=== PATIENT | male | born 1980 | race Caucasian/White ===

== ENCOUNTER 2021-10-21 08:42 | Day surgery (SDC) | payer MEDICARE ==
[2021-10-20 10:39] VITALS: BMI 21.6
[~2021-10-21 08:42] MED LIST: EPINEPHrine 0.3 MG, Dextrose 50% 3 ML in Ophthalmic Irrigation Solution 500 ML IRR SCH
[2021-10-21] MEDS ORDERED: Ondansetron PF 4 MG/2 ML Vial ONE (08:55)
[2021-10-21] MEDS ORDERED: Phenylephrine 2.5% Ophth Soln 5 ML BOT ONE (09:27)
[2021-10-21] MEDS ORDERED: Cyclopentolate 1% Opth Drop 2 ML BOT ONE (09:27)
[2021-10-21] MEDS ORDERED: Lidocaine 1% PF 5 ML VIAL ONE (09:59)
[2021-10-21] MEDS ORDERED: Labetalol HCl 100 MG/20 ML VIAL ONE (09:59)
[2021-10-21] MEDS ORDERED: Triamcinolone 40 MG/ML VIAL ONE (09:59)
[2021-10-21] MEDS ORDERED: PROPOFOL 200 MG/20 ML VIAL ONE (09:59)
[2021-10-21] MEDS ORDERED: Maxitrol 0.1% Opth Oint 3.5 GM TUBE ONE (09:59)
[2021-10-21] MEDS ORDERED: CEFAZOLIN 1 GM VIAL ONE (09:59)
[2021-10-21] MEDS ORDERED: Dextrose 50% Abboject 50 ML SYRINGE ONE (09:59)
== END 2021-10-21 11:50 | disposition home or self-care (01) ==
LOC: SDC 08:42
PROVIDERS: ATTEND Ophthalmology Retina Specialist
PROC: 08T53ZZ Resection of Left Vitreous, Percutaneous Approach (ICD-10-PCS; principal; 2021-10-21)
PROC: 08QF3ZZ Repair Left Retina, Percutaneous Approach (ICD-10-PCS; 2021-10-21)
PROC: 08NF3ZZ Release Left Retina, Percutaneous Approach (ICD-10-PCS; 2021-10-21)
DX: H43.12 Vitreous hemorrhage, left eye (principal); Z79.4 Long term (current) use of insulin; Z79.82 Long term (current) use of aspirin; Z79.899 Other long term (current) drug therapy
CPT/HCPCS: 36416; J0171; J0690; J2405; J2704; J3301